=== PATIENT | male | born 1980 | race African-American/Black ===

== ENCOUNTER 2016-12-14 10:09 | Emergency (ER) | payer OTHER ==
[~2016-12-14] VITALS: Ht 188 cm; Wt 101.2 kg
[2016-12-14 10:19] VITALS: BP 138/83; PULSE 72; RESP 18; TEMP 97.6; O2SAT 97
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
== END 2016-12-14 11:12 | disposition home or self-care (01) ==
LOC: PHED 10:09
DX: Z04.1 Encounter for examination and observation following transport accident (principal); V43.52XA Car driver injured in collision with other type car in traffic accident, initial encounter; Y92.481 Parking lot as the place of occurrence of the external cause; Y99.8 Other external cause status
CPT/HCPCS: 99281